=== PATIENT | male | born 1950 | race Caucasian/White ===

== ENCOUNTER → 2017-07-22 | Outpatient (CLI) | payer BC ==
[~2017-07-22] VITALS: Ht 179.1 cm; Wt 104.9 kg
[~2017-07-22] MED LIST: ASPIRIN E.C. 8181 MG PO; BENICAR40 MG PO; BRILINTA90 MG PO; LIPITOR 80MG80 MG PO; NITROSTAT0.4 MG/TAB SL; NORVASC 5MG5 MG/TAB PO; TOPROL XL 50MG50 MG PO; ZYRTEC 10MG10 MG PO
[2017-07-22 06:22] VITALS: BP 153/98; PULSE 68
[2017-07-22 08:00] VITALS: BP 160/73; PULSE 84
[2017-07-22 08:02] VITALS: BP 138/83; PULSE 91
[2017-07-22 08:03] VITALS: BP 148/84; PULSE 84
[2017-07-22 08:04] VITALS: BP 178/83; PULSE 80
== END ==
LOC: COL.CARD 06:08
DX: I08.8 Other rheumatic multiple valve diseases (principal)
CPT/HCPCS: A9502; J2785

== ENCOUNTER 2017-07-23 07:55 | Day surgery (SDC) | payer BC ==
[2017-07-23] VITALS (718 sets, daily range): BP systolic 120–159; BP diastolic 68–98; PULSE 56–75; TEMP 97.5–98.7; O2SAT 88–100
[~2017-07-23] VITALS: Ht 180.3 cm; Wt 101.8 kg
[~2017-07-23 07:55] MED LIST changes: -BRILINTA90 MG PO; -LIPITOR 80MG80 MG PO; -NITROSTAT0.4 MG/TAB SL; -TOPROL XL 50MG50 MG PO
[2017-07-23 08:30] LABS: HEMATOCRIT 44.2 % (42.0-52.0); HEMOGLOBIN 15.2 g/dl (13.5-18.0); MEAN CELL VOLUME 85 fl (80.0-100.0); MEAN CORPUSCULAR HEMOGLOBIN 29 pg (27.0-31.0); MEAN CORPUSCULAR HGB CONC 34 g/dl (33.0-37.0); MEAN PLATELET VOLUME 10.7 fl (7.4-10.4); PLATELET COUNT 283 K/mm3 (130-400); RED BLOOD COUNT 5.19 M/mm3 (4.20-5.60); REDCELL DISTRIBUTION WIDTH-CV 12.6 % (11.5-14.5)
[2017-07-23 08:39] LABS: CALCIUM 9.5 mg/dL (8.4-10.2); CREATININE, serum 1.15 mg/dL (0.66-1.25); POTASSIUM 4.1 mmol/L (3.4-5.0)
[2017-07-23 08:43] LABS: INR 1.1 (0.8-3.0); PROTHROMBIN TIME 12.9 SECONDS (9.7-12.8)
[2017-07-23] MEDS ORDERED: TOPROL XL 50MG50 MG PO (08:54)
[2017-07-23] MEDS ORDERED: LIPITOR 80MG80 MG PO (08:54)
[2017-07-23] MEDS ORDERED: ASPIRIN E.C. 8181 MG PO (08:55)
[2017-07-24] VITALS (510 sets, daily range): BP systolic 121–157; BP diastolic 80–84; PULSE 57–71; TEMP 97.6–99.2; O2SAT 89–100
[2017-07-24 03:11] LABS: BASO # 0.1 (0.0-0.2); BASO % 0.5 % (0.0-2.0); EOS # 0.4 (0.0-0.7); EOS % 3.8 % (0-4.0); GRAN # 7.2 (1.4-6.5); GRAN % 65.2 % (42.2-75.2); HEMATOCRIT 39.6 % (42.0-52.0); HEMOGLOBIN 13.4 g/dl (13.5-18.0); LYMPH # 2.4 (1.2-3.4); LYMPH % 21.6 % (20.0-51.0); MEAN CELL VOLUME 86 fl (80.0-100.0); MEAN CORPUSCULAR HEMOGLOBIN 29 pg (27.0-31.0); MEAN CORPUSCULAR HGB CONC 34 g/dl (33.0-37.0); MEAN PLATELET VOLUME 10.9 fl (7.4-10.4); MONO # 0.9 (0.1-0.6); MONO % 8.6 % (1.7-9.3); PLATELET COUNT 252 K/mm3 (130-400); REDCELL DISTRIBUTION WIDTH-CV 12.8 % (11.5-14.5)
[2017-07-24 03:24] LABS: CALCIUM 9.2 mg/dL (8.4-10.2); CREATININE, serum 1.12 mg/dL (0.66-1.25)
[2017-07-24] MEDS ORDERED: BRILINTA90 MG PO (13:13)
[2017-07-24] MEDS ORDERED: NITROSTAT0.4 MG/TAB SL (13:14)
== END 2017-07-24 13:40 | disposition home or self-care (01) ==
LOC: COL.CAR 07:55 → ICU 10:52 → COL.CAR 07-24 13:40
PROVIDERS: Internal Medicine Cardiovascular Disease; Nurse Practitioner
DX: I25.10 Atherosclerotic heart disease of native coronary artery without angina pectoris (principal); R94.39 Abnormal result of other cardiovascular function study; I10 Essential (primary) hypertension; E78.5 Hyperlipidemia, unspecified; J30.9 Allergic rhinitis, unspecified
CPT/HCPCS: OP; C9600; C9601; J0583; J2250; J3010; Q9967

== ENCOUNTER 2017-10-08 15:34 | Outpatient (RCR) | payer BC ==
[~2017-10-08 15:34] MED LIST changes: +BRILINTA90 MG PO; +LIPITOR 80MG80 MG PO; +NITROSTAT0.4 MG/TAB SL; +TOPROL XL 50MG50 MG PO
== END 2017-10-11 08:40 | disposition home or self-care (01) ==
LOC: COL.CR 15:34
DX: Z48.812 Encounter for surgical aftercare following surgery on the circulatory system (principal); Z95.5 Presence of coronary angioplasty implant and graft; I25.10 Atherosclerotic heart disease of native coronary artery without angina pectoris

== ENCOUNTER 2018-07-14 06:29 | Day surgery (SDC) | payer BC ==
[~2018-07-14] VITALS: Ht 177.8 cm; Wt 97.3 kg
[2018-07-14] VITALS (18 sets, daily range): BP systolic 117–153; BP diastolic 63–88; PULSE 49–69; TEMP 97.2–98.1
[2018-07-14] MEDS ORDERED: LEVAQUIN 5500 MG/TA1 PO (07:39)
--- NOTE | 2018-07-14 09:52 | NUR ---
Patient continues to rest on cart and await neph tube placement and surgery.
--- NOTE | 2018-07-14 10:56 | NUR ---
Patient taken to radiology per cart. IV fluids infusing.
--- NOTE | 2018-07-14 11:25 | NUR ---
pt placed on ct table in prone position. O2 on at 2l/nc. Monitors applied to pt. Iv infusing without difficulty.
--- NOTE | 2018-07-14 12:02 | NUR ---
Report to Jazmin HERNANDEZ, care assumed.
--- NOTE | 2018-07-14 12:05 | NUR ---
Patient returns to room 7 per cart with guide wire in place and secured to the right side with tegaderm dressings x2. Voids 500cc's pink tinged urine per urinal. Denies pain and is resting on the left side. IV fluids infusing.
--- NOTE | 2018-07-14 12:05 | NUR ---
Returned from radiology per cart. Call light in reach and siderails up x2.
--- NOTE | 2018-07-14 16:20 | NUR ---
PATIENT ARRIVED TO ROOM 342 VIA BED FROM THE PACU. PATIENT IS DROWSY FROM SURGERY, BUT EASILY AROUSABLE. POST-OP VSS. BOWEL SOUNDS HYPOACTIVE ALL FOUR QUADRANTS. PATIENT TOLERATING SIPS OF WATER WITHOUT COMPLAINTS OF N/V. RIGHT NEPHROSTOMY SITE DRESSED WITH AN OCCLUSIVE DRESSING AND IS CD&I. RIGHT NEPHROSTOMY DRAIN TO DEPENDENT DRAINGE WITH MALONEY BAG. SCANT AMOUNT OF PINK URINE PRESENT IN NEPHROSTOMY MALONEY BAG. MALONEY CATHETER TO DEPENDENT DRAINAGE WITH SCANT AMOUNTS OF PINK CLEAR URINE PRESENT IN MALONEY BAG. POSITIVE PEDAL PULSES EQUAL BILATERALLY. SCD'S TO BLE. IV FLUIDS INFUSING TO LEFT HAND IV VIA PUMP. CALL LIGHT WITHIN REACH. PRESENT AT THE BEDSIDE. NO OTHER NEEDS AT THIS TIME.
--- NOTE | 2018-07-14 19:07 | NUR ---
POST-OP VSS. PATIENT EATING AND DRINKING. REPORT GIVEN TO ALANA GARCIA.
--- NOTE | 2018-07-14 20:00 | NUR ---
Patient resting in bed at this time, at bedside. Patient is alert and oriented, answers questions appropriately. Nelson catheter in place draining clear pink urine; output is minimal. Nephrostomy tube in right lower back to dependent drainage in nelson bag, output is clear and pink. Post op checks continue. Patient is on oxygen at 1L via NC, SpO2 is 96%. Patient states he has "a bit of an ache" in his right side, declines pain medicaiton at this time. Patient denies further needs, call light within reach.
--- NOTE | 2018-07-15 00:15 | NUR ---
Patient has had approximately 1200ml out of his nephrostomy tube and only approximately 25 ml out of his nelson. Bladder scan showed no residual urine in his bladder. Patient continues to deny pain or discomfort. Called Dr. Werner to inform him of uneven output, recieved TORB to flush nelson and continue to monitor. Nelson flushed with approximately 100ml of sterile water, nelson flushed easily and no clots returned. Will continue to monitor.
[2018-07-15 04:19] VITALS: BP 125/66; PULSE 70; TEMP 98.6
[2018-07-15 06:21] LABS: BASO % 0.1 % (0.0-2.0); GRAN % 87.8 % (42.2-75.2); HEMOGLOBIN 12.5 g/dl (13.5-18.0); LYMPH # 0.7 (1.2-3.4); LYMPH % 5.5 % (20.0-51.0); MEAN CELL VOLUME 87 fl (80.0-100.0); MEAN CORPUSCULAR HEMOGLOBIN 29 pg (27.0-31.0); MEAN CORPUSCULAR HGB CONC 34 g/dl (33.0-37.0); MEAN PLATELET VOLUME 12.2 fl (7.4-10.4); MONO # 0.8 (0.1-0.6); PLATELET COUNT 187 K/mm3 (130-400); RED BLOOD COUNT 4.26 M/mm3 (4.20-5.60); REDCELL DISTRIBUTION WIDTH-CV 12.7 % (11.5-14.5)
[2018-07-15 06:35] LABS: CALCIUM 8.5 mg/dL (8.4-10.2); CREATININE, serum 1.29 mg/dL (0.66-1.25); POTASSIUM 4.3 mmol/L (3.4-5.0)
[2018-07-15 06:39] LABS: HEMATOCRIT 36.9 % (42.0-52.0)
[2018-07-15 08:00] VITALS: BP 116/65; PULSE 66; TEMP 97.6
--- NOTE | 2018-07-15 08:00 | NUR ---
PATIENT RESTING IN BED THIS MORNING. PATIENT IS A&O. VSS. BOWEL SOUNDS ACTIVE ALL FOUR QUADRANTS. PATIENT TOLERATING FOOD & LIQUIDS WITHOUT ANY COMPLAINTS OF N/V. RIGHT BACK NEPHROSTOMY SITE DRESSED WITH AN OCCLUSIVE DRESSING AND IS CD&I. NEPH TUBE CLAMPED. POSITIVE PEDAL PULSES EQUAL BILATERALLY. SCD'S TO BLE. LEFT HAND TO INT. PATIENT DENIES PAIN. BREAKFAST TRAY ORDERED. CALL LIGHT WITHIN REACH. PATIENT DENIES ANY OTHER NEEDS AT THIS TIME.
--- NOTE | 2018-07-15 09:21 | NUR ---
SW met with the patient to discuss discharge plan. 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 He reports independence with ADLs and does not use any DME. The patient's PCP is Dr. Jose Cardozo and he receives his medications at [facility]. He reports no difficulties obtaining his meds. The patient had provided his advanced directives and they were placed in his chart. The patient plans to return home with his upon discharge. No additional needs at this time.
--- NOTE | 2018-07-15 10:36 | NUR ---
Initial visit; Patient thanked Area Director Of Home Health Sales for looking in on him and offering God's blessings.
[2018-07-15 13:28] VITALS: BP 134/67; PULSE 57; TEMP 98.8
--- NOTE | 2018-07-15 14:00 | NUR ---
PATIENT'S LEFT WRIST INT DC'D PER PENDING DISCHARGE. PATIENT TOLERATED WELL.
--- NOTE | 2018-07-15 16:40 | NUR ---
PATIENT BACK RIGHT NEPH TUBE INCISION DRESSING CHANGED WITH 4X4 GAUZE & HYPAFIX. PATIENT TOLERATED WELL. DISCHARGE INSTRUCTIONS REVIEWED WITH PATIENT AND . DRESSING INSTRUCTIONS REVIEWED. ALL QUESTIONS ANSWERED. PATIENT PERSONAL BELONGINGS GATHERED. PATIENT AMBULATED TO PERSONAL VEHICLE WITH SURGICAL STAFF. PATIENT DISCHARGED.
== END 2018-07-15 16:40 | disposition home or self-care (01) ==
LOC: SDCO 06:29 → EDSTATUS 08:30 → SDCO 08:30 → COL.RAD 08:30 → SURG 16:20 → SDCO 07-15 16:40
PROVIDERS: Urology
DX: N20.2 Calculus of kidney with calculus of ureter (principal); Z95.5 Presence of coronary angioplasty implant and graft; I25.10 Atherosclerotic heart disease of native coronary artery without angina pectoris; E78.5 Hyperlipidemia, unspecified; I10 Essential (primary) hypertension; E78.1 Pure hyperglyceridemia; E66.01 Morbid (severe) obesity due to excess calories; Z68.29 Body mass index [BMI] 29.0-29.9, adult; Z79.899 Other long term (current) drug therapy; Z83.3 Family history of diabetes mellitus; Z82.49 Family history of ischemic heart disease and other diseases of the circulatory system; Z80.43 Family history of malignant neoplasm of testis; Z80.3 Family history of malignant neoplasm of breast
CPT/HCPCS: OP; A4314; C1726; C1758; C1769; C2617; J0690; J1100; J1885; J1956; J2250; J2405; J2704; J3010; J7120; Q9967

== ENCOUNTER 2018-07-29 05:38 | Day surgery (SDC) | payer BC ==
[~2018-07-29] VITALS: Ht 177.8 cm; Wt 97.3 kg
[~2018-07-29 05:38] MED LIST changes: +LEVAQUIN 5500 MG/TA1 PO
[2018-07-29 06:25] VITALS: BP 135/72; PULSE 58; TEMP 97.9
[2018-07-29] MEDS ORDERED: REVATIO20 MG PO (06:47)
--- NOTE | 2018-07-29 07:47 | NUR ---
Report given to PIT CRANE OPERATORMarjan HERNANDEZ. Pt taken via cart to OR at this time by DAVID Phillip and CLAUDIA Morales. stayed in pts room. Dr Werner was in to see pt prior to going to OR.
[2018-07-29 09:25] VITALS: BP 122/71; PULSE 57; TEMP 97.6
--- NOTE | 2018-07-29 09:25 | NUR ---
Pt returned via cart to [place] [facility]. Tolerated cup of water in PACU. Report received from Nasreen INSERTER OPERATOR. Pt A&O. Side rails up. Given coffee and muffin per request. Call light in reach. VSS-see flowsheet.
[2018-07-29 09:40] VITALS: BP 135/66; PULSE 58
[2018-07-29 09:55] VITALS: BP 128/70; PULSE 55
--- NOTE | 2018-07-29 09:55 | NUR ---
VSS-see flowsheet. Pt tolerated muffin and coffee. Reports pain in abdomen and flank. Requesting pain medication. Offered repositioning. Will administer prn medication.
[2018-07-29 10:10] VITALS: BP 130/69; PULSE 53
--- NOTE | 2018-07-29 10:10 | NUR ---
Pt given fentanyl per MAR. Will reassess. Side rails up and call light in reach. VS monitor in place.
[2018-07-29 10:40] VITALS: BP 122/68; PULSE 54
--- NOTE | 2018-07-29 10:40 | NUR ---
Pt reports pain relief. Resting in bed and denied other needs. left for a meeting and will return for discharge.
--- NOTE | 2018-07-29 11:15 | NUR ---
IV removed with catheter tip intact. Pressure dressing applied. Discharge teaching completed, and pt verbalized understanding. After dressed, pt taken via wheelchair to private vehicle for dc home with driving.
== END 2018-07-29 11:15 | disposition home or self-care (01) ==
LOC: SDCO 05:38
DX: N20.2 Calculus of kidney with calculus of ureter (principal); I25.10 Atherosclerotic heart disease of native coronary artery without angina pectoris; E78.5 Hyperlipidemia, unspecified; N52.9 Male erectile dysfunction, unspecified; I10 Essential (primary) hypertension; E78.1 Pure hyperglyceridemia; R80.9 Proteinuria, unspecified; E66.01 Morbid (severe) obesity due to excess calories; J45.909 Unspecified asthma, uncomplicated; Z79.82 Long term (current) use of aspirin; Z88.0 Allergy status to penicillin; Z88.1 Allergy status to other antibiotic agents; Z80.3 Family history of malignant neoplasm of breast; Z83.3 Family history of diabetes mellitus; Z82.49 Family history of ischemic heart disease and other diseases of the circulatory system; Z80.43 Family history of malignant neoplasm of testis
CPT/HCPCS: C1769; J0690; J1885; J2405; J2704; J3010; J7120

== ENCOUNTER → 2019-02-23 | Outpatient (CLI) | payer BC ==
[~2019-02-23] MED LIST changes: +REVATIO20 MG PO
== END ==
LOC: COL.LAB 11:03
DX: E21.3 Hyperparathyroidism, unspecified (principal)

== ENCOUNTER → 2019-03-16 | Outpatient (CLI) | payer BC | LOC: COL.RAD 10:10 | DX: N20.0 Calculus of kidney (principal) | CPT/HCPCS: A9500 ==

== ENCOUNTER 2019-05-10 18:45 | Inpatient (IN) | payer BC ==
[~2019-05-10] VITALS: Ht 180.3 cm; Wt 96.4 kg
[2019-05-10 19:49] VITALS: BP 147/75; PULSE 77; TEMP 97.9
[2019-05-10 19:59] LABS: HEMATOCRIT 42.9 % (42.0-52.0); HEMOGLOBIN 14.4 g/dl (13.5-18.0); MEAN CELL VOLUME 89 fl (80.0-100.0); MEAN CORPUSCULAR HEMOGLOBIN 30 pg (27.0-31.0); MEAN CORPUSCULAR HGB CONC 34 g/dl (33.0-37.0); MEAN PLATELET VOLUME 11.3 fl (7.4-10.4); PLATELET COUNT 196 K/mm3 (130-400); RED BLOOD COUNT 4.85 M/mm3 (4.20-5.60); REDCELL DISTRIBUTION WIDTH-CV 12.7 % (11.5-14.5)
[2019-05-10 20:10] LABS: ALBUMIN 4.4 gm/dL (3.5-5.0); BILIRUBIN,TOTAL 0.7 mg/dL (0.0-1.0); CALCIUM 8.6 mg/dL (8.4-10.2); CREATININE, serum 1.01 (0.66-1.25); POTASSIUM 3.8 mmol/L (3.4-5.0); TOTAL PROTEIN 7.3 gm/dL (6.4-8.2)
[2019-05-10 20:12] LABS: BAND 1 % (0-10); LYMPHOCYTE 5 % (20.0-51.0); NEUTROPHILS 91 % (42.0-75.2); PLATELET ESTIMATE NORMAL (NORMAL)
[2019-05-10 20:40] LABS: THYROID STIMULATING HORMONE 1.25 uIU/mL (0.465-4.680)
[2019-05-10 23:27] VITALS: BP 124/72; PULSE 69; TEMP 98.4
--- NOTE | 2019-05-11 01:01 | NUR ---
Cardiology consult called to Dr. Bowers.
[2019-05-11 04:19] VITALS: BP 117/61; PULSE 37; TEMP 98.4
[2019-05-11 07:28] LABS: BASO % 0.1 % (0.0-2.0); GRAN # 12.3 (1.4-6.5); GRAN % 87.3 % (42.2-75.2); HEMATOCRIT 40.5 % (42.0-52.0); HEMOGLOBIN 13.5 g/dl (13.5-18.0); LYMPH # 0.9 (1.2-3.4); MEAN CELL VOLUME 88 fl (80.0-100.0); MEAN CORPUSCULAR HEMOGLOBIN 29 pg (27.0-31.0); MEAN CORPUSCULAR HGB CONC 33 g/dl (33.0-37.0); MEAN PLATELET VOLUME 11.9 fl (7.4-10.4); MONO # 0.9 (0.1-0.6); PLATELET COUNT 216 K/mm3 (130-400); RED BLOOD COUNT 4.62 M/mm3 (4.20-5.60); REDCELL DISTRIBUTION WIDTH-CV 12.5 % (11.5-14.5)
[2019-05-11 07:51] VITALS: BP 145/71; PULSE 68; TEMP 98.6
[2019-05-11 08:23] LABS: CALCIUM 8.4 mg/dL (8.4-10.2); CREATININE, serum 1.19 (0.66-1.25); MAGNESIUM 1.8 mg/dL (1.6-2.3); POTASSIUM 4.3 mmol/L (3.4-5.0)
[2019-05-11 11:08] VITALS: BP 129/74; PULSE 64; TEMP 98.6
[2019-05-11] MEDS ORDERED: TOPROL XL 25MG25 MG PO (11:34)
--- NOTE | 2019-05-11 13:45 | NUR ---
Pt discharged to home, Pt teaching provided, escorted to entrance, left with family via private auto.
--- NOTE | 2019-05-11 14:35 | NUR ---
Sr. Logistics Analyst met with patient to discuss discharge planning. Patient lives in [place] with his , Helen. Patient sees Dr. Cardozo for primary care and obtains prescriptions from [facility] with no difficulties. Patient reports independence with ADLS and does not have any DME. Patient reports he has DPOA-HC. Patient plans to return home upon discharge with transportation being provided by Helen. No additional concerns at this time.
--- NOTE | 2019-05-11 14:51 | NUR ---
First visit from the soda room operator. No needs right now.
== END 2019-05-11 13:45 | disposition home or self-care (01) | DRG 310 ==
LOC: MEDICAL 18:45
PROVIDERS: Nurse Practitioner Family; ADMIT Hospitalist
DX: R00.1 Bradycardia, unspecified (principal); I25.10 Atherosclerotic heart disease of native coronary artery without angina pectoris; E21.3 Hyperparathyroidism, unspecified; E78.5 Hyperlipidemia, unspecified; D72.829 Elevated white blood cell count, unspecified; Z95.820 Peripheral vascular angioplasty status with implants and grafts; Z87.442 Personal history of urinary calculi; Z79.82 Long term (current) use of aspirin
CPT/HCPCS: 99239; J1644